=== PATIENT | female | born 1985 | race Caucasian/White ===

== ENCOUNTER 2021-05-26 07:41 | Outpatient (REF) | payer MEDICARE, SELFPAY ==
[2021-05-26 12:18] LABS: Alanine Aminotransferase 6 U/L (0-31); Anion Gap 13 (12-20); Aspartate Amino Transferase 12 U/L (5-31); Blood Urea Nitrogen 10 mg/dL (9-16); Calcium 9.2 mg/dL (8.4-10.2); Carbon Dioxide 25 mmol/L (22-29); Chloride 107 mmol/L (96-108); Cholesterol 221 mg/dL; Estimated Glomerular Filt Rate > 60; Glucose Fasting 91 mg/dL (60-99); HDL Cholesterol 87 mg/dL; LDL Cholesterol Calculated 116 mg/dl; Potassium 4.1 mmol/L (3.3-5.1); Sodium 141 mmol/L (135-145); Triglycerides 92 mg/dL
== END 2021-05-26 07:42 | disposition home or self-care (01) ==
LOC: HO.HMGCLDS 07:41
PROVIDERS: PCP Internal Medicine; Visit Provider Internal Medicine
DX: K58.0 Irritable bowel syndrome with diarrhea (principal); E78.5 Hyperlipidemia, unspecified; I10 Essential (primary) hypertension
CPT/HCPCS: 36415; 80048; 80061; 84450; 84460

== ENCOUNTER 2022-02-10 08:52 | Outpatient (REF) | payer MEDICARE, SELFPAY ==
[2022-02-10 11:40] LABS: Alanine Aminotransferase 6 U/L (0-31); Anion Gap 12 (12-20); Aspartate Amino Transferase 11 U/L (5-31); Blood Urea Nitrogen 11 mg/dL (9-16); Calcium 9.5 mg/dL (8.4-10.2); Carbon Dioxide 27 mmol/L (22-29); Chloride 104 mmol/L (96-108); Cholesterol 257 mg/dL; Estimated Glomerular Filt Rate > 60; Glucose Fasting 88 mg/dL (60-99); HDL Cholesterol 102 mg/dL; LDL Cholesterol Calculated 129 mg/dl; Potassium 4.1 mmol/L (3.3-5.1); Sodium 139 mmol/L (135-145); Triglycerides 130 mg/dL
== END 2022-02-10 08:53 | disposition home or self-care (01) ==
LOC: HO.HMGCLDS 08:52
PROVIDERS: PCP Internal Medicine; Visit Provider Internal Medicine
DX: G40.209 Localization-related (focal) (partial) symptomatic epilepsy and epileptic syndromes with complex partial seizures, not intractable, without status epilepticus (principal); K58.9 Irritable bowel syndrome, unspecified; I10 Essential (primary) hypertension; E78.5 Hyperlipidemia, unspecified
CPT/HCPCS: 36415; 80048; 80061; 84450; 84460

== ENCOUNTER 2022-03-01 12:46 | Outpatient (REF) | payer MEDICARE, SELFPAY ==
--- NOTE | ~2022-03-01 | MR_ITS ---
EXAMINATION: BRAIN MRI WITHOUT CONTRAST CLINICAL INFORMATION: Forehead swelling. Shunt. COMPARISON: CT scan of the head 02/28/2018. TECHNIQUE: Multiplanar MR imaging of the brain was performed without contrast. FINDINGS: There is a right parietal ventriculoperitoneal shunt in place with the tip of the proximal catheter extending across midline into the frontal horn of left lateral ventricle. Possible bone flap resorption. Stable ventricular volumes when compared to CT imaging from 02/28/2018. There are chronic changes of a right craniotomy and there is a cystic resection cavity that occupies a large proportion of the right frontal lobe. There is a margin of expansile T2 FLAIR signal hyperintensity peripherally representing gliosis along the margins of the surgical cavity. No intracranial mass effect or midline shift. No abnormal extra-axial collection. There is no acute territorial infarct. No pathological magnetic susceptibility artifact. Intracranial vascular flow voids are grossly maintained. There is no mastoid middle ear effusion. There is at least partial opacification of the left frontal sinus with a polyp or retention cyst within the sinus cavity. Globes and orbits are symmetric. MR/MR head/brain wo con IMPRESSION: There are chronic postoperative changes of a right craniotomy. There is a large cystic cavity that occupies the majority of the right frontal lobe. It appears as though there has been some degree of bone flap resorption which is somewhat difficult to characterize on MR. A CT scan of the head therefore can be obtained for better anatomic characterization of the calvarium. Stable ventricular volumes. The position of the right parietal ventriculoperitoneal shunt has remained unchanged with the tip of the proximal catheter traversing the right lateral ventricle and extending into the frontal horn of the left lateral ventricle. There is left frontal sinus disease with a polyp or retention cyst located within the sinus cavity.
== END 2022-03-01 12:47 | disposition home or self-care (01) ==
LOC: HO.MRI 12:46
PROVIDERS: Visit Provider Internal Medicine
DX: G91.9 Hydrocephalus, unspecified (principal); R60.9 Edema, unspecified
CPT/HCPCS: 70551

== ENCOUNTER 2022-08-24 07:59 | Outpatient (REF) | payer MEDICARE, SELFPAY ==
[2022-08-24 12:44] LABS: Alanine Aminotransferase 7 U/L (0-31); Aspartate Amino Transferase 12 U/L (5-31); Cholesterol 208 mg/dL; HDL Cholesterol 92 mg/dL; LDL Cholesterol Calculated 95 mg/dl; Triglycerides 106 mg/dL
== END 2022-08-24 08:00 | disposition home or self-care (01) ==
LOC: HO.HMGCLDS 07:59
PROVIDERS: PCP Internal Medicine; Visit Provider Internal Medicine
DX: E78.5 Hyperlipidemia, unspecified (principal)
CPT/HCPCS: 36415; 80061; 84450; 84460

== ENCOUNTER 2023-06-15 13:18 | Outpatient (AMB) | payer MEDICARE, SELFPAY ==
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
[2023-06-15 13:24] VITALS: BP 126/76; PULSE 79; O2SAT 99; BMI 27.6
== END 2023-06-15 14:16 | disposition home or self-care (01) ==
PROVIDERS: PCP Internal Medicine; Visit Provider Internal Medicine
DX: Z00.00 Encounter for general adult medical examination without abnormal findings (principal); G91.9 Hydrocephalus, unspecified; G40.209 Localization-related (focal) (partial) symptomatic epilepsy and epileptic syndromes with complex partial seizures, not intractable, without status epilepticus; K58.0 Irritable bowel syndrome with diarrhea; E78.5 Hyperlipidemia, unspecified; H47.22 Hereditary optic atrophy
CPT/HCPCS: 99395

== ENCOUNTER 2023-06-21 08:14 | Outpatient (REF) | payer MEDICARE, SELFPAY ==
[2023-06-21 12:26] LABS: Alanine Aminotransferase 9 U/L (0-31); Anion Gap 11 (12-20); Aspartate Amino Transferase 13 U/L (5-31); Blood Urea Nitrogen 10 mg/dL (9-16); Calcium 9.7 mg/dL (8.4-10.2); Carbon Dioxide 25 mmol/L (22-29); Chloride 109 mmol/L (96-108); Cholesterol 215 mg/dL (<200); Estimated Glomerular Filt Rate > 60; Glucose Fasting 90 mg/dL (60-99); HDL Cholesterol 90 mg/dL (>40); LDL Cholesterol Calculated 100 mg/dL (<100); Potassium 3.9 mmol/L (3.3-5.1); Sodium 141 mmol/L (135-145); Triglycerides 128 mg/dL (<150)
[2023-06-21 12:28] LABS: Vitamin D 25-OH Total 48.3 ng/mL (>30)
== END 2023-06-21 08:15 | disposition home or self-care (01) ==
LOC: HO.HMGCLDS 08:14
PROVIDERS: PCP Internal Medicine; Visit Provider Internal Medicine
DX: Z00.01 Encounter for general adult medical examination with abnormal findings (principal); G91.9 Hydrocephalus, unspecified; H47.22 Hereditary optic atrophy; G40.209 Localization-related (focal) (partial) symptomatic epilepsy and epileptic syndromes with complex partial seizures, not intractable, without status epilepticus; E78.5 Hyperlipidemia, unspecified; K58.0 Irritable bowel syndrome with diarrhea
CPT/HCPCS: 36415; 80048; 80061; 82306; 84450; 84460

== ENCOUNTER 2024-06-26 08:09 | Outpatient (REF) | payer MEDICARE, SELFPAY ==
[2024-06-26 10:17] LABS: Hematocrit 36.9 % (37.0-47.0); Hemoglobin 12.3 g/dl (12.0-16.0)
[2024-06-26 10:36] LABS: Alanine Aminotransferase 8 U/L (0-31); Anion Gap 12 (12-20); Aspartate Amino Transferase 11 U/L (5-31); Blood Urea Nitrogen 11 mg/dL (9-16); Calcium 9.4 mg/dL (8.4-10.2); Carbon Dioxide 26 mmol/L (22-29); Chloride 106 mmol/L (96-108); Cholesterol 222 mg/dL (<200); Estimated Glomerular Filt Rate > 60; Glucose Fasting 87 mg/dL (60-99); HDL Cholesterol 94 mg/dL (>40); LDL Cholesterol Calculated 100 mg/dL (<100); Sodium 140 mmol/L (135-145); Triglycerides 142 mg/dL (<150)
[2024-06-26 10:37] LABS: Vitamin D 25-OH Total 46.7 ng/mL (>30)
== END 2024-06-26 08:10 | disposition home or self-care (01) ==
LOC: HO.HMGCLDS 08:09
PROVIDERS: PCP Internal Medicine; Visit Provider Internal Medicine
DX: G91.9 Hydrocephalus, unspecified (principal); G40.209 Localization-related (focal) (partial) symptomatic epilepsy and epileptic syndromes with complex partial seizures, not intractable, without status epilepticus; E78.5 Hyperlipidemia, unspecified; K58.0 Irritable bowel syndrome with diarrhea
CPT/HCPCS: 36415; 80048; 80061; 82306; 84450; 84460; 85014; 85018

== ENCOUNTER 2024-06-27 11:03 | Outpatient (AMB) | payer MEDICARE, SELFPAY ==
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
[2024-06-27 11:09] VITALS: BP 138/96; PULSE 84; O2SAT 98; BMI 28.9
== END 2024-06-27 11:35 | disposition home or self-care (01) ==
PROVIDERS: PCP Internal Medicine; Visit Provider Internal Medicine
DX: Z00.00 Encounter for general adult medical examination without abnormal findings (principal); G40.209 Localization-related (focal) (partial) symptomatic epilepsy and epileptic syndromes with complex partial seizures, not intractable, without status epilepticus; G91.9 Hydrocephalus, unspecified; E78.5 Hyperlipidemia, unspecified; H47.22 Hereditary optic atrophy; K58.0 Irritable bowel syndrome with diarrhea
CPT/HCPCS: 99395

== ENCOUNTER 2025-07-17 14:16 | Outpatient (AMB) | payer MEDICARE, SELFPAY ==
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
[2025-07-17 14:27] VITALS: BP 128/86; PULSE 90; RESP 15; TEMP 36.8; O2SAT 100; BMI 30.7
--- OUTSIDE RECORDS SUMMARY | 2025-07-17 18:40 | XMS_ITS | Clinical Summary ---
Author Organization [facility] Address [address] [place] [address] Care Team Providers Care Consulting Engineer Name Role Phone Katie Ernandez Unavailable [phone] Social History Tobacco Use Types Packs/Day Years Used Date Smoking Tobacco: Never Assessed Comments Unknown Sex and Gender Information Value Date Recorded Sex Assigned at Not on file Legal Sex Female 10:05 AM EDT Gender Identity Not on file Sexual Orientation Not on file Plan of Treatment Upcoming Encounters Date Type Department Care Team ([facility] Contact Info) Description 07/22/2025 1:30 PM EDT Office Visit [facility] Department of Obstetrics and Gynecology [address] [place] [address] Mary Hawkins MD [address]-OBSTETRICS/[place] [address] Health Maintenance Due Date Last Done Comments Breast Cancer Screening 1984 HIV Screening 1984 DTaP,Tdap,and Td Vaccines (1 - Tdap) 2002 Hepatitis C Screening 2002 Hepatitis B Vaccines (1 of 3 - 19+ 3-dose series) 2003 Pap Smear 2005 HPV Vaccines (1 - 3-dose SCD M series) 2011 Cervical Cancer Screening 2014 HPV/Cotest 2014 COVID-19 Vaccine ( - 2023-2 5 season) 2025 Influenza Vaccine (#1) 2025 Zoster Vaccines (1 of 2) 2034 Hepatitis A Vaccines Aged Out No long er eligible based on patient's age to complete this topic MMR Vaccines Aged Out No longer eligi ble based on patient's age to complete this topic Meningococcal Vaccine Aged Out No kathy francheska eligible based on patient's age to complete this topic Pneumococcal Vaccine: Pediat rics (0 to 5 Years) and At-Risk Patients (6 to 49 Years) Aged Out No longer eligible b ased on patient's age to complete this topic Insurance AAR MEDICARE Care Teams Consulting Engineer Relationship Specialty Start Date End Date Katie Ernandez [address] [place] [id number] PCP - Insurance Payer PCP 03/24/25
== END 2025-07-17 15:03 | disposition home or self-care (01) ==
PROVIDERS: PCP Internal Medicine; Visit Provider Internal Medicine
DX: Z00.01 Encounter for general adult medical examination with abnormal findings (principal); K58.0 Irritable bowel syndrome with diarrhea; E78.5 Hyperlipidemia, unspecified; G40.209 Localization-related (focal) (partial) symptomatic epilepsy and epileptic syndromes with complex partial seizures, not intractable, without status epilepticus; H47.22 Hereditary optic atrophy; Z71.89 Other specified counseling

== ENCOUNTER → 2025-07-17 14:16 | Outpatient (BNVA) | payer MEDICARE, SELFPAY | PROVIDERS: PCP Internal Medicine; Visit Provider Internal Medicine | DX: Z00.01 Encounter for general adult medical examination with abnormal findings (principal); R10.2 Pelvic and perineal pain; K58.0 Irritable bowel syndrome with diarrhea; E78.5 Hyperlipidemia, unspecified; G40.209 Localization-related (focal) (partial) symptomatic epilepsy and epileptic syndromes with complex partial seizures, not intractable, without status epilepticus; H47.22 Hereditary optic atrophy; Z71.89 Other specified counseling | CPT/HCPCS: 96127; 99396 ==

== ENCOUNTER 2025-07-24 08:11 | Outpatient (REF) | payer MEDICARE, SELFPAY ==
--- OUTSIDE RECORDS SUMMARY | 2025-07-22 13:20 | XMS_ITS | Encounter Summary ---
Author Organization [facility] Address [address] [place] [address] Care Team Providers Care Telephone Maintenance Mechanic Name Role Phone Katie Ernandez Unavailable [phone] Katie Ernandez Primary Care Provider [phone] Reason for Visit * OBGYN (Routine) - Pending Review Specialty Diagnoses / Procedures Referred By Quang daugherty Referred To Contact Radiology Diagnoses Pelvic pain in female Procedures SIGN INSTALLER Ultrasound Mary Hawkins MD [address] [place], [place] [address]OB[place] [address] Phone: tel: fax: Referral ID Status Reason Start Date Expiration Date V isits Requested Visits Authorized [id number] Pending Review 07/22/2025 08/26/2026 1 1 Encounter Details Date Type Department Care Team ([facility] Contact Info) Description 07/22/2025 1:20 PM EDT Ancillary Procedure [facility] Department of Ultrasound Imaging [address] [place] [address] Mary Hawkins MD [address] [place], [place] [address]OBSTETRICS/ [place] [address] Arrived Social History Tobacco Use Types Packs/Day Years Used Date Smoking Tobacco: Never Smokeless Tobacco: Never PHQ-2 Answer Date Recorded PHQ-2 Score 0 07/22/2025 Humiliation, Afraid, Rape, and Kick questionnair e Answer Date Recorded Within the last year, have y ou been afraid of your partner or ex-partner? No 07/22/2025 Within the last year, have y ou been humiliated or emotionally abused in other ways by your partner or ex-partner? No Within the last year, have y ou been kicked, hit, slapped, or otherwise physically hurt by your partner or ex-partner? No 07/22/2025 Within the last year, have y ou been raped or forced to have any kind of sexual activity by your partner or ex-partner? No 07/22/2025 Comments Unknown Sex and Gender Information Value Date Recorded Sex Assigned at Not on file Legal Sex Female 10:05 AM EDT Gender Identity Not on file Sexual Orientation Not on file COVID-19 Exposure Response Date Recorded In the last 10 days, have yo u been in contact with someone who was confirmed or suspected to have Coronavirus/COVID-19? No / Unsure 07/22/2025 1:10 PM EDT documented as of this encounter Plan of Treatment Upcoming Encounters Date Type Department Care Team (Latest Contact Info) Description 12/02/2025 11:00 AM EST Consult [facility] of Obstetrics and Gynecology [address] [place] [address] Mary Hawkins MD [address] [place], [place] [address]OBSTETRIC S/GYNECOLOGY [place] [id number] 12/17/2025 12:30 PM EST Hospital Encounter [facility] Operating Room Services [address] [place] [address] Mary Hawkins MD [address] [place], [place] [address]OBSTETRIC S/[place] [address] 12/17/2025 12:30 PM EST - 12/17/2025 2:15 PM EST Surgery [facility] Operating Room Services [address] [place] [address] Mary Hawkins MD [address] [place], [place] [address]OBSTETRIC S/[place] [address] LAPAROSCOPY, WITH EXCISION OR FULGURATION OF LESIONS OF OVARY, PELVIC VISCERA, OR PERITONEAL SURFACE [[id number] (CPT )] 12/30/2025 10:45 AM EDT Follow-Up [facility] Department of Obstetrics and Gynecology [address] [place], [place] [id number] Mary Hawkins MD [address]-OBSTETRIC S/[place] [address] Scheduled Procedures Name Priority Associated Diagnoses Date/Ti me LAPAROSCOPY, WITH EXCISION OR FULGURATION OF LESIONS OF OVARY, PELVIC VISCERA, OR PERITONEAL SURFACE Pelvic pain in female 12/17/2025 12:30 PM EST HYSTEROSCOPY, POLYPECTOMY, DILATION AND CURETTAGE OF UTERUS, AND ENDOMETRIAL BIOPSY Pelvic pain in female 12/17/2025 12:30 PM EST documented as of this encounter Procedures Procedure Name Priority Date/Time Associated Diagnosis Comments SIGN INSTALLER ULTRASOUND Routine 07/22/2025 1:15 PM EDT Pelvic pain in female documented in this encounter Results * SIGN INSTALLER Ultrasound (07/22/2025 1:15 PM EDT) Anatomical Region Laterality Modality Body Ultrasound Narrative 07/22/2025 3:04 PM EDT Ultrasound Result: Transvaginal ultrasound revealed an anteverted uterus measuring 7.48 x 3.27 x 3.92 cm with an endometrial stripe measuring 1.5 mm and the ParaGard IUD in place. Normal anterior and posterior slide sign. Left ovary measuring 2.34 x 1.49 x 2.23 cm. Right ovary measuring 1.35 x 1.28 x 1.47 cm. No free fluid was seen. Both ovaries were mobile. us Mary Hawkins MD IMG OB US PROCEDURES Final Result documented in this encounter Visit Diagnoses Not on filedocumented in this encounter Care Teams Telephone Maintenance Mechanic Relationship Specialty Start Date End Date Katie Ernandez [facility] [place] [address] PCP - Insurance Payer PCP 03/24/25 Katie Ernandez [address] [place] [phone] PCP - General Internal Medicine 07/22/25 documented as of this encounter
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
--- OUTSIDE RECORDS SUMMARY | 2025-07-24 08:19 | XMS_ITS | Clinical Summary ---
Author Organization [facility] Address [address] [place] [address] Care Team Providers Care Stave Planer Tender Name Role Phone Katie Ernandez Unavailable [phone] Katie Ernandez Primary Care Provider [phone] Allergies Active Allergy Reactions Criticality Noted Date Comments Sutures 07/22/2025 Degradable sutures Medications atorvastatin (LIPITOR) 20 mg tablet 05/09/20 25 Active carBAMazepine XR (TEGretol XR) 200 mg 12 hr tablet 06/24/20 25 Active dicyclomine (BENTYL) 20 mg tablet 07/17/20 25 Active copper (PARAGARD) intrauterine device intrauterine device 1 Intra Uterine Device by intrauterine route Every 12 Years. Active norethindrone (AYGESTIN) 5 mg tablet Take 2 tablets (10 mg total) by mouth in the morning. 60 tablet 11 07/22/20 25 Active norethindrone (AYGESTIN) 5 mg tablet 06/16/20 25 025 Discontin ued(Reord er) Active Problems Problem Noted Date Diagnosed Date Pelvic pain in female 07/22/2025 Encounters Date Type Department Care Team Description 07/22/2025 1:30 PM EDT Office Visit [facility] Department of Obstetrics and Gynecology [address] [place] [address] Mary Hawkins MD Pelvic pain in female (Primary Dx) 07/22/2025 1:20 PM EDT Ancillary Procedure [facility] [address] [place] [address] Mary Hawkins MD Arrived from Last 3 Months Social History Tobacco Use Types Packs/Day Years [...] No / Unsure 07/22/2025 1:10 PM EDT Last Filed Vital Signs Vital Sign Reading Time Taken Comments Blood Pressure 150/93 07/22/2025 1:26 PM EDT Pulse 84 07/22/2025 1:26 PM EDT Temperature - - Respiratory Rate - - Oxygen Saturation - - Inhaled Oxygen Concentration - - Weight 78.3 kg (172 lb 11 oz) 07/22/2025 1:26 PM EDT Height - - Body Mass Index - - Plan of Treatment Upcoming Encounters Date Type Department Care Team (Latest Contact Info) Description 12/02/2025 11:00 AM EST Consult [facility] Department of Obstetrics and Gynecology [address] [place] [address] Mary Hawkins MD [address] [place] [address]-OBSTETRIC S/GYNECOLOGY [place] [address] 12/17/2025 12:30 PM EST Hospital Encounter [facility] Operating Room Services [address] [place] [address] Mary Hawkins MD [address] [place], [place] [address]OBSTETRIC S/GYNECOLOGY [place] [address] 12/17/2025 12:30 PM EST - 12/17/2025 2:15 PM EST Surgery [facility] Operating Room Services [address] [place] [address] Mary Hawkins MD [address] [place] [address] LAPAROSCOPY, WITH EXCISION OR FULGURATION OF LESIONS OF OVARY, PELVIC VISCERA, OR PERITONEAL SURFACE [[id number] (CPT )] 12/30/2025 10:45 AM EDT Follow-Up [facility] Department of Obstetrics and Gynecology [address] [place] [address] Mary Hawkins MD [address] [place] [address] Scheduled Procedures Name Priority Associated Diagnoses Date/Ti me LAPAROSCOPY, WITH EXCISION OR FULGURATION OF LESIONS OF OVARY, PELVIC VISCERA, OR PERITONEAL SURFACE Pelvic pain in female 12/17/2025 12:30 PM EST HYSTEROSCOPY, POLYPECTOMY, DILATION AND CURETTAGE OF UTERUS, AND ENDOMETRIAL BIOPSY Pelvic pain in female 12/17/2025 12:30 PM EST Health Maintenance Due Date Last Done Comments Breast Cancer Screening 1984 HIV Screening 1984 DTaP,Tdap,and Td Vaccines (1 - Tdap) 2002 Hepatitis C Screening 2002 Hepatitis B Vaccines (1 of 3 - 19+ 3-dose series) 2003 Pap Smear 2005 HPV Vaccines (1 - 3-dose SCD M series) 2011 Cervical Cancer Screening 2014 HPV/Cotest 2014 COVID-19 Vaccine (1 - 2023-2 5 season) 2025 Influenza Vaccine [...] on patient's age to complete this topic Procedures Procedure Name Priority Date/Time Associated Diagnosis Comments RUBBER FLAP TUBER MACHINE OPERATOR ULTRASOUND Routine 07/22/2025 1:15 PM EDT Pelvic pain in female from Last 3 Months Results * RUBBER FLAP TUBER MACHINE OPERATOR Ultrasound (07/22/2025 1:15 PM EDT) Anatomical Region [...] MD IMG OB US PROCEDURES Final Result from Last 3 Months Insurance [facility] MEDICARE Care Teams Stave Planer Tender Relationship Specialty Start Date End Date Katie Ernandez [address] [place] [id number] PCP - Insurance Payer PCP 03/24/25 Katie Ernandez [address] [place] [id number] PCP - General Internal Medicine 07/22/25
[2025-07-24 10:36] LABS: MANUAL DIFF FLAG NO
[2025-07-24 10:46] LABS: Hematocrit 41.1 % (37.0-47.0); Hemoglobin 14.3 g/dl (12.0-16.0); Imm Gran Abs Auto 0.02 X10*3/uL (0.00-0.03); Imm Gran Pct Auto 0.3 % (0.0-0.4); Lymphocytes Absolute Auto 1.6 X10*3/uL (1.2-4.9); Mean Corpuscular HGB Conc 34.8 g/dl (31.0-35.0); Mean Corpuscular Hemoglobin 30.3 pg (27.0-33.0); Mean Corpuscular Volume 87.1 fL (80.0-98.0); NRBC Abs Auto 0.000 X10*3/uL (0.0-0.012); NRBC Pct Auto 0.0 /100WBC (0.0-0.2); Platelet Count 231 X10*3/uL (160-400); Red Blood Count 4.72 X10*6/uL (4.20-5.50); White Blood Count 6.0 X10*3/uL (4.8-10.8)
[2025-07-24 11:22] LABS: Alanine Aminotransferase 12 U/L (0-31); Anion Gap 12 (12-20); Aspartate Amino Transferase 19 U/L (5-31); Blood Urea Nitrogen 9 mg/dL (9-16); Calcium 9.4 mg/dL (8.4-10.2); Carbon Dioxide 26 mmol/L (22-29); Chloride 108 mmol/L (96-108); Cholesterol 189 mg/dL (<200); Estimated Glomerular Filt Rate > 60; HDL Cholesterol 61 mg/dL (>40); Potassium 4.0 mmol/L (3.3-5.1); Sodium 142 mmol/L (135-145); Triglycerides 75 mg/dL (<150)
== END 2025-07-24 08:12 | disposition home or self-care (01) ==
LOC: HO.HMGCLDS 08:11
PROVIDERS: PCP Internal Medicine; Visit Provider Internal Medicine
DX: K58.0 Irritable bowel syndrome with diarrhea (principal); E78.5 Hyperlipidemia, unspecified; H47.22 Hereditary optic atrophy; G91.9 Hydrocephalus, unspecified; G40.209 Localization-related (focal) (partial) symptomatic epilepsy and epileptic syndromes with complex partial seizures, not intractable, without status epilepticus
CPT/HCPCS: 36415; 80048; 80061; 82306; 84450; 84460; 85025